=== PATIENT | female | born 1940 | race Caucasian/White ===

== ENCOUNTER 2018-01-30 05:40 | Day surgery (SDC) | payer OTHER ==
[2018-01-30] MEDS ORDERED: ACETAMINOPHEN 500 MG TAB PO ONE (05:57)
[2018-01-30] MEDS ORDERED: ceFAZolin 2 GM/SWFI 2 GM/20 ML SYR IVP ONE (05:57)
[2018-01-30] MEDS ORDERED: LR 1,000 ML IV ONE (06:04)
--- NOTE | 2018-01-30 06:14 | CPEKG ---
Heart Rate: 80 RR Interval: 750 P-R Interval: 180 QRSD Interval: 94 QT Interval: 396 QTC Interval: 457 P [place]: 29 QRS [place]: -20 T Wave [place]: 74 EKG Severity - ABNORMAL ECG - EKG Impression: SINUS RHYTHM EKG Impression: ATRIAL PREMATURE COMPLEX EKG Impression: PROBABLE INFERIOR INFARCT, AGE INDETERMINATE Electronically Signed By: Arnav Mcgovern 31-Jan-2018 12:38:39
--- NOTE | 2018-01-30 06:47 | PDANEPAE ---
ANE Past Medical History - Cardiovascular History Hx Hypertension: Yes Hx Arrhythmias: No Hx Chest Pain: No Hx Coronary Artery / Peripheral Vascular Disease: No Hx CHF / Valvular Disease: No Hx Palpitations: No Cardiovascular History Comment: HIGH CHOLESTEROL - Pulmonary History Hx COPD: No Hx Asthma/Reactive Airway Disease: No Hx Recent Upper Respiratory Infection: No Hx Oxygen in Use at Home: No Hx Sleep Apnea: Yes Sleep Apnea Screening Result - Last Documented: Positive - Neurologic History Hx Cerebrovascular Accident: No Hx Seizures: No Hx Dementia: No - Endocrine History Hx Diabetes: Yes Hypothyroid: No Hyperthyroid: No Obesity: yes, mild Endocrine History Comment: DM II - Renal History Hx Renal Disorders: No - Liver History Hx Hepatic Disorders: No - Neurological & Psychiatric Hx Hx Neurological and Psychiatric Disorders: No - Cancer History Hx Cancer: No - Congenital Disorder History Hx Congenital Disorders: No - GI History GERD: no Hx Gastrointestinal Disorders: No Gastrointestinal History Comment: CONSTIPATION - Other Health History Other Health History: . ARTHRITIS. DENTURES. SPINAL STENOSIS. GOUT - Chronic Pain History Chronic Pain: Yes (BACK) - Surgical History Prior Surgeries: kyphoplasty 2015. T11-L1 instrumentation 2015. BACK 04/2011. BREAST BIOPSY. PAROTID GLAND SURG ANE Review of Systems Review of Systems: - Exercise capacity METS (RN): 3 METS ANE Patient History - Allergies Allergies/Adverse Reactions: Penicillins Allergy (Severe, Verified 09/25/16 17:21) RASH, SWELLING - Home Medications Home Medications: Acetaminophen [Tylenol ES 500 mg (*)] 500 mg PO Q6 PRN 12/26/15 [Last Taken 06/11] Allopurinol 100 01/29/18 [Last Taken 01/29/18] Calcium 01/29/18 [Last Taken 01/29/18] Co Q-10 01/29/18 [Last Taken 01/29/18] Metformin HCl 150 DAILY 01/29/18 [Last Taken 01/29/18] Multivitamin (*) 01/29/18 [Last Taken 01/29/18] [place] 3 500 Softgel 01/29/18 [Last Taken 01/29/18] Vitamin D3 (*) 01/29/18 [Last Taken 01/29/18] Zetia 10 MG (*) 01/29/18 [Last Taken 01/29/18] oxyCODONE CR 01/29/18 [Last Taken 01/29/18] Methocarbamol 01/30/18 [Last Taken 01/29/18] - NPO status NPO Since - Liquids (Date): 01/29/18 NPO Since - Liquids (Time): 20:00 NPO Since - Solids (Date): 01/29/18 NPO Since - Solids (Time): 20:00 - Anes Hx Anes Hx: no prior problems - Smoking Hx Smoking Status: Never smoked - Alcohol Use Alcohol Use: Rarely - Family Anes Hx Family Anes Hx: neg - N/A Family Hx Anesthesia Complications: NONE ANE Labs/Vital Signs - Labs Result Diagrams: 01/30/18 06:30 - Vital Signs Blood Pressure: 145/82 Heart Rate: 80 Respiratory Rate: 14 O2 Sat (%): 91 Height: 160.02 cm Weight: 81.647 kg ANE Physical Exam - Airway Neck exam: FROM Mallampati Score: Class 2 Mouth exam: normal dental/mouth exam - Pulmonary Pulmonary: no respiratory distress, no rales or rhonchi, clear to auscultation - Cardiovascular Cardiovascular: regular rate and rhythym, no murmur, rub, or gallop - ASA Status ASA Status: II ANE Anesthesia Plan Anesthesia Plan: general endotracheal anesthesia Total IV Anesthesia: No
--- NOTE | 2018-01-30 06:51 | PDHPUP ---
History & Physical Update H&P update statement: This history and physical update is based on an assessment of the patient which was completed after admission or registration (within 24 hours), but prior to the surgery/procedure. H&P update: H&P reviewed & patient examined, no change in patient's condition since H&P completed
[2018-01-30] MEDS ORDERED: BUPIVACAINE 0.25% 30 ML SDV ONE (07:01)
[2018-01-30] MEDS ORDERED: CHLORHEXIDINE GLUC HIBICLENS 118 ML BTL TP ONE (07:01)
[2018-01-30] MEDS ORDERED: THROMBIN (BOVINE) 5,000 UNIT VIAL TP ONE (07:02)
[2018-01-30] MEDS ORDERED: BACITRACIN 50,000 UNITS/10 ML SYR IRR ONE (07:02)
[2018-01-30] MEDS ORDERED: IOPAMIDOL (ISOVUE-M 300) 15 ML VIAL ONE (07:02)
[2018-01-30] MEDS ORDERED: fentaNYL 100 MCG/2 ML INJ ONE ×5 (07:07→10:43)
[2018-01-30] MEDS ORDERED: PROPOFOL/EMULSION 500 MG/50 ML BOTTLE IV ONE (07:07)
[2018-01-30] MEDS ORDERED: ONDANSETRON 4 MG/2 ML VIAL ONE (07:08)
[2018-01-30] MEDS ORDERED: KETOROLAC 30 MG/1 ML SDV ONE (07:08)
[2018-01-30] MEDS ORDERED: ROCURONIUM 50 MG/5 ML VIAL ONE (07:08)
[2018-01-30] MEDS ORDERED: LIDOCAINE 2% 5 ML SDV ONE (07:08)
[2018-01-30] MEDS ORDERED: PROPOFOL 200 MG/20 ML VIAL ONE (07:19)
[2018-01-30] MEDS ORDERED: ceFAZolin 2 GM/SWFI 20 ML SYR IVP ONE (07:54)
[2018-01-30] MEDS ORDERED: DIAZEPAM 5 MG/ML 1 ML SYR IVP PRN (08:54)
[2018-01-30] MEDS ORDERED: ENALAPRILAT DIHYDRATE 1.25 MG/ML VIAL IVP PRN (08:54)
[2018-01-30] MEDS ORDERED: NALOXONE HCL 0.4 MG/ML INJ IVP PRN (08:54)
[2018-01-30] MEDS ORDERED: OXYCODONE/APAP 5/325 TAB PO PRN (08:54)
[2018-01-30] MEDS ORDERED: ACETAMINOPHEN 500 MG TAB PO PRN (08:54)
[2018-01-30] MEDS ORDERED: ONDANSETRON 4 MG/2 ML VIAL IVP PRN ×2 (08:54→09:14)
[2018-01-30] MEDS ORDERED: PROMETHAZINE HCL 25 MG/ML INJ IVP PRN (08:54)
[2018-01-30] MEDS ORDERED: LR 500 ML IV PRN (08:54)
[2018-01-30] MEDS ORDERED: ONDANSETRON DISINTEGRATING 4 MG TAB PO PRN (09:14)
--- NOTE | 2018-01-30 09:17 | SOAPPROG ---
SABRINA Progress Note Assessment/Plan: Assessment: 77 yo F sp T5 kyphoplasty Plan: stable dc at noon please call with neuro changes please have Dr Christopher see patient prior to discharge 01/30/18 09:16 Subjective: + incisional pain, no rib pain Objective: Vital Signs Temp Pulse Resp BP Pulse Ox 37.1 C 80 14 145/82 H 91 L 01/30/18 06:11 01/30/18 08:53 01/30/18 08:53 01/30/18 08:53 01/30/18 08:53 Laboratory Results 01/30/18 06:30 awake, alert PERRL, no facial droop JUVENTINO x 4 + light touch ICD10 Worksheet Patient Problems: Problems Problem Status Onset Fusion of lumbar spine Acute
--- NOTE | 2018-01-30 09:27 | GOP ---
[f rep st] OPERATIVE REPORT DATE OF OPERATION: 01/30/2018 SURGEON: Fredrick Connor MD SHEET METAL WORKER: Sreekanth Castro. ANESTHESIA: General endotracheal and local. PREOPERATIVE DIAGNOSIS: T5 osteoporotic vertebral compression. POSTOPERATIVE DIAGNOSIS: T5 osteoporotic vertebral compression. PROCEDURE PERFORMED: Minimally invasive percutaneous kyphoplasty procedure T5 with use of computer v olumetric stereotactic navigation. FINDINGS: ESTIMATED BLOOD LOSS: Trace. INDICATIONS: The patient is a 77-year-old woman with a complex past medical and surgical history inv olving her spine. She has had extensive prior instrumented fusions and adjacent level osteoporotic v ertebral compression fractures treated with kyphoplasty procedure and presents now for another one at the T5 level adjacent to a prior T6 level kyphoplasty due to intractable pain. This failed to impro ve with extensive conservative care. DESCRIPTION OF PROCEDURE: After informed consent was obtained, the patient was taken to the operatin g room and placed in the prone position on the Ruben table. The thoracic area was prepped and drap ed in a sterile fashion. After fluoroscopic localization of the correct level, the subcutaneous and intramuscular tissues were infiltrated with local anesthesia. A midline linear incision was created about 2 levels above the area of interest and the incision was carried down to the fascial layer, whi ch was incised using a monopolar electrocautery and a frame attached to the spinous processes. The O -arm neuronavigational system was brought in and 3-D reconstructed images obtained. Using computer v olumetric stereotactic navigation, the T5 level was cannulated and the kyphoplasty devices placed tra nspedicularly. The balloons were blown up to approximately 200 under biplanar fluoroscopic image hesham dance. These were removed and the T5 level filled with bone cement under real-time fluoroscopic imag e guidance. The cannulas were removed and neuromonitoring signals were stable throughout the case. The wounds were copiously irrigated with antibiotic irrigation. Meticulous hemostasis was achieved a nd closed in a layered fashion using interrupted Vicryl sutures followed by Steri-Strips on the skin. COMPLICATIONS: None. DISPOSITION: The patient is currently in the process of being repositioned for extubation. /[id number]/MODL
[2018-01-30 09:43] VITALS: RESP 16
[2018-01-30 09:47] VITALS: TEMP 97.9
[2018-01-30] MEDS: fentaNYL 100 MCG/2 ML INJ IVP PRN ×3 (10:07→10:45)
[2018-01-30] MEDS ORDERED: HYDROCODONE/APAP 5/325 TAB ONE ×2 (10:43→11:15)
[2018-01-30] MEDS: HYDROCODONE/APAP 5/325 TAB PO PRN ×2 (10:47→11:17)
--- NOTE | 2018-01-30 11:00 | POSTANESTH ---
Post Anesthetic Evaluation Cardiovascular Status: Normal, Stable, Similar to Pre-Op Cond Respiratory Status: Normal, Stable Level of Consciousness/Mental Status: Can Participate in Eval Pain Control: Adequate, Prn Tx Ordered Nausea/Vomiting Control: Adequate, Prn Tx Ordered Complications Possibly Related to Anesthesia: None Noted
[2018-01-30 11:02] VITALS: BP 134/65; O2SAT 95
[2018-01-30 12:18] VITALS: PULSE 86
== END 2018-01-30 12:56 | disposition home or self-care (01) ==
LOC: FSGY 05:40
PROVIDERS: ATTEND Neurological Surgery
PROC: 0PU43JZ Supplement Thoracic Vertebra with Synthetic Substitute, Percutaneous Approach (ICD-10-PCS; principal; 2018-01-30 07:15)
PROC: 0PS43ZZ Reposition Thoracic Vertebra, Percutaneous Approach (ICD-10-PCS; principal; 2018-01-30 07:15)
PROC: BR171ZZ Fluoroscopy of Thoracic Spine using Low Osmolar Contrast (ICD-10-PCS; 2018-01-30 07:15)
DX: M80.88XA Other osteoporosis with current pathological fracture, vertebra(e), initial encounter for fracture (principal); E11.9 Type 2 diabetes mellitus without complications; Z98.1 Arthrodesis status
CPT/HCPCS: 22513; 76001; 93005; C1894; C1713; J0171; J0690; J1885; J2405; J2704; J3010; Q9967

== ENCOUNTER 2018-03-10 11:07 | Observation (INO) | payer OTHER ==
--- NOTE | 2018-03-09 16:51 | GHP ---
[f rep st] PREOP HISTORY AND PHYSICAL DATE OF ADMISSION: 03/10/2018 HISTORY: Rosi is a 77-year-old female who presents with left knee arthritis. She has pain and sw elling, some limitation of motion, alteration of her gait and restriction of activities of daily eric ng. She has done appropriate conservative measures. Her x-rays show significant tricompartmental le ft knee osteoarthritis, especially medial compartment which is near [id number]. PAST MEDICAL HISTORY: She is prediabetic. She has history of gout and hypothyroidism. MEDICATIONS: Include Zetia 10 mg p.o. daily, metformin 850 mg p.o. daily, allopurinol 100 mg p.o. da kaci. PAST SURGICAL HISTORY: Includes a spinal fusion x2, a kyphoplasty, appendectomy, salivary gland surg mik. She has had a breast biopsy, benign. SOCIAL HISTORY: She is a nonsmoker. ALLERGIES: Penicillin. REVIEW OF SYSTEMS: Remarkable from the endocrine standpoint for diabetes and from the musculoskeleta l standpoint for gout. Also, from the endocrine standpoint for hypothyroid. PHYSICAL EXAM: GENERAL: The patient is a well-developed, well-nourished female in no apparent distr ess. HEAD AND NECK: Normocephalic, atraumatic. CHEST: Clear. CARDIOVASCULAR: Regular rate and r hythm. ABDOMEN: Soft. NEUROLOGIC: She is alert and oriented x3. EXTREMITIES: Examination of the left knee shows prominence along the medial joint line. She has a flexion contracture and 120 degre es of flexion. She tends towards varus alignment. Sensation and perfusion are intact. She has medi an joint line tenderness. X-RAYS: Tricompartment left knee osteoarthritis with subchondral sclerosis, decreased joint space, e ssentially [id number]-[id number] contact in the medial compartment. IMPRESSION: Left knee osteoarthritis. PLAN: Left total knee arthroplasty. Benefits, risks of surgery been reviewed. She has signed a con sent form, wishes to proceed. She understands that the risks include infection, damage to blood vess el or nerve, failure or loosening of components, blood clot in the leg or lungs, bleeding, and need f or transfusion. I have reviewed the rigorous nature of the rehabilitation. /[id number]/MODL
--- NOTE | 2018-03-10 07:19 | PDHPUP ---
History & Physical Update H&P update statement: This history and physical update is based on an assessment of the patient which was completed after admission or registration (within 24 hours), but prior to the surgery/procedure. H&P update: H&P reviewed & patient examined (no change)
[~2018-03-10 11:07] MED LIST: BUPI/epINEPH/KETOROLAC IU ONE; POVIDONE-IODINE 20 ML in SODIUM CL IRRIG SOLUTION 500 ML IRR ONE; ROPIVACAINE 0.2% 80 MG, EPINEPHrine 0.2 MG, KETOROLAC TROMETHAMINE 30 MG in SYRINGE 0 ML IU ONE; TRANEXAMIC ACID 1,000 MG in NS (SYRINGE) 50 ML IV ONE; VANCOMYCIN 1.25 GM in NS 250 ML IV ONE; ceFAZolin 1 GM/5 ML SYR ONE
[2018-03-10] MEDS ORDERED: ACETAMINOPHEN 325 MG TAB PO ONE (11:20)
[2018-03-10] MEDS ORDERED: GABAPENTIN 300 MG CAP PO ONE (11:20)
[2018-03-10] MEDS ORDERED: FAMOTIDINE 20 MG TAB PO ONE (11:20)
[2018-03-10] MEDS ORDERED: DEXAMETHASONE 4 MG/ML VIAL IVP ONE (11:20)
[2018-03-10] MEDS ORDERED: VANCOMYCIN PHARMACY TO DOSE MISC ONE (11:20)
[2018-03-10] MEDS ORDERED: LIDOCAINE 1% 2 ML INJ ID PRN (11:21)
[2018-03-10] MEDS ORDERED: LR 1,000 ML IV ONE (11:21)
--- NOTE | 2018-03-10 11:45 | PDANEPAE ---
ANE History of Present Illness L TKA ANE Past Medical History - Cardiovascular History Hx Hypertension: Yes Hx Arrhythmias: No Hx Chest Pain: No Hx Coronary Artery / Peripheral Vascular Disease: No Hx CHF / Valvular Disease: No Hx Palpitations: No Cardiovascular History Comment: HIGH CHOLESTEROL - Pulmonary History Hx COPD: No Hx Asthma/Reactive Airway Disease: No Hx Recent Upper Respiratory Infection: No Hx Oxygen in Use at Home: No Hx Sleep Apnea: No Sleep Apnea Screening Result - Last Documented: Negative - Neurologic History Hx Cerebrovascular Accident: No Hx Seizures: No Hx Dementia: No - Endocrine History Hx Diabetes: Yes Endocrine History Comment: PREDIABETIC - Renal History Hx Renal Disorders: No - Liver History Hx Hepatic Disorders: No - Neurological & Psychiatric Hx Hx Neurological and Psychiatric Disorders: No - Cancer History Hx Cancer: No - Congenital Disorder History Hx Congenital Disorders: No - GI History Hx Gastrointestinal Disorders: No Gastrointestinal History Comment: CONSTIPATION - Other Health History Other Health History: ARTHRITIS. DENTURES. SPINAL STENOSIS. GOUT - Chronic Pain History Chronic Pain: Yes (BACK) - Surgical History Prior Surgeries: kyphoplasty X2. T11-L1 instrumentation 2016. BACK 04/2011. BREAST BIOPSY. PAROTID GLAND SURG. APPENDECTOMY ANE Review of Systems Review of systems is: negative Review of Systems: - Exercise capacity METS (RN): 3 METS ANE Patient History - Allergies Allergies/Adverse Reactions: Penicillins Allergy (Severe, Verified 09/25/16 17:21) RASH, SWELLING - Home Medications Home medications: home medication list seen and reviewed Home Medications: Acetaminophen [Tylenol ES 500 mg (*)] 500 - 1,000 mg PO QID PRN 02/18/18 [Last Taken 1 Day Ago ~03/09/18] Allopurinol [Allopurinol 100 MG (*)] 100 mg PO DAILY 02/18/18 [Last Taken ] Calcium Carb W/Vit D [Calcium Carb W/Vit D 500/200 (*)] 1,000 mg PO DAILY [Last Taken 1 Week Ago ~03/03/18] Cholecalciferol Vit D3 [Vitamin D3 (*)] 1,000 units PO DAILY 02/18/18 [Last Taken 1 Week Ago ~03/03/18] Ezetimibe [Zetia 10 MG (*)] 10 mg PO HS 02/18/18 [Last Taken 1 Day Ago ~03/09/18 ] Herbals/Supplements -Info Only 1 ea PO DAILY 02/18/18 [Last Taken 1 Week Ago ~] Methocarbamol [Robaxin 750 mg (*)] 750 mg PO DAILY PRN 02/18/18 [Last Taken 2 Weeks Ago ~02/24/18] Multivitamins [Multivitamin (*)] 1 each PO DAILY 02/18/18 [Last Taken 1 Week Ago ~03/03/18] metFORMIN HCL [Glucophage 850 mg (*)] 850 mg PO DAILY 02/18/18 [Last Taken 03/07] oxyCODONE IR [Oxycodone Ir (*)] 5 mg PO DAILY PRN 02/18/18 [Last Taken 3 Weeks Ago ~02/17/18] Aspirin 02/24/18 [Last Taken 03/08/18] Prolia 02/24/18 [Last Taken 12/05/17] - NPO status NPO Since - Liquids (Date): 03/10/18 NPO Since - Liquids (Time): 23:30 NPO Since - Solids (Date): 03/10/18 NPO Since - Solids (Time): 23:30 - Anes Hx Anes Hx: no prior problems - Smoking Hx Smoking Status: Never smoked - Family Anes Hx Family Anes Hx: none Family Hx Anesthesia Complications: NONE ANE Labs/Vital Signs - Vital Signs Blood Pressure: 152/70 Heart Rate: 87 Respiratory Rate: 18 O2 Sat (%): 94 Height: 160.02 cm Weight: 79.379 kg ANE Physical Exam - Airway Neck exam: FROM Mallampati Score: Class 2 Mouth exam: dentures - Pulmonary Pulmonary: no respiratory distress - Cardiovascular Cardiovascular: regular rate and rhythym - ASA Status ASA Status: II ANE Anesthesia Plan Anesthesia Plan: MAC, spinal
[2018-03-10] MEDS ORDERED: MIDAZOLAM 2 MG/2 ML VIAL ONE (12:41)
[2018-03-10] MEDS ORDERED: PROPOFOL/EMULSION 500 MG/50 ML BOTTLE IV ONE (13:05)
[2018-03-10] MEDS ORDERED: LIDOCAINE 2% 100 MG/5 ML SYR ONE (13:05)
[2018-03-10] MEDS ORDERED: epHEDrine SULFATE 10 MG/ML SYR ONE (13:49)
[2018-03-10] MEDS ORDERED: ONDANSETRON 4 MG/2 ML VIAL IVP PRN ×2 (13:54→14:46)
[2018-03-10] MEDS ORDERED: oxyCODONE IR 5 MG TAB PO PRN ×2 (13:54→14:46)
[2018-03-10] MEDS ORDERED: HYDROmorphONE/DILAUDID 1 MG/ML INJ IVP PRN (13:54)
[2018-03-10] MEDS ORDERED: HYDROCODONE/APAP 5/325 TAB PO PRN (13:54)
[2018-03-10] MEDS ORDERED: fentaNYL 100 MCG/2 ML INJ IVP PRN (13:54)
[2018-03-10] MEDS ORDERED: NALOXONE HCL 0.4 MG/ML INJ IVP PRN (13:54)
[2018-03-10] MEDS ORDERED: MEPERIDINE 25 MG/ML SYR IVP PRN (13:54)
[2018-03-10] MEDS ORDERED: DEXAMETHASONE 4 MG/ML VIAL IVP PRN (13:54)
[2018-03-10] MEDS ORDERED: ACETAMINOPHEN 500 MG TAB PO PRN (13:54)
--- NOTE | 2018-03-10 13:54 | POSTANESTH ---
Post Anesthetic Evaluation Cardiovascular Status: Normal, Stable, Similar to Pre-Op Cond Respiratory Status: Normal, Stable, Similar to Pre-op Cond. Level of Consciousness/Mental Status: Can Participate in Eval, Mildly Sleepy, Arousable Pain Control: Adequate, Prn Tx Ordered Nausea/Vomiting Control: Adequate, Prn Tx Ordered Complications Possibly Related to Anesthesia: None Noted
[2018-03-10] MEDS ORDERED: HYDROmorphONE/DILAUDID 2 MG/ML INJ IVP PRN (14:02)
[2018-03-10] MEDS ORDERED: MAGNESIUM HYDROXIDE 30 ML UDCUP PO PRN (14:46)
[2018-03-10] MEDS ORDERED: DIPHENOXYLATE/ATROPINE LOMOTIL 1 TAB PO PRN (14:46)
[2018-03-10] MEDS ORDERED: CYCLOBENZAPRINE 10 MG TAB PO PRN (14:46)
[2018-03-10] MEDS ORDERED: PROMETHAZINE HCL 25 MG SUPPR PR PRN (14:46)
[2018-03-10] MEDS ORDERED: LACTULOSE 20 GM/30 ML UDCUP PO PRN (14:46)
[2018-03-10] MEDS ORDERED: POLYETHYLENE GLYCOL 3350 17 GM PKT PO PRN (14:46)
[2018-03-10] MEDS ORDERED: PROMETHAZINE HCL 25 MG/ML INJ IVP PRN (14:46)
[2018-03-10] MEDS ORDERED: METOCLOPRAMIDE 10 MG/2 ML VIAL IVP PRN (14:46)
[2018-03-10] MEDS ORDERED: ONDANSETRON DISINTEGRATING 4 MG TAB PO PRN (14:46)
[2018-03-10] MEDS ORDERED: BISACODYL 10 MG SUPP PR PRN (14:46)
[2018-03-10] MEDS ORDERED: diphenhydrAMINE 25 MG CAP PO PRN (14:46)
[2018-03-10] MEDS ORDERED: METHOCARBAMOL 750 MG TAB PO PRN (14:51)
[2018-03-10] MEDS ORDERED: LR 1,000 ML IV SCH (15:00)
--- NOTE | 2018-03-10 16:14 | GOP ---
[f rep st] OPERATIVE REPORT DATE OF OPERATION: SURGEON: Scott Quevedo MD MACHINE FEED OPERATOR: Tip Matthew, CSFA, LSA. My surgical asst, Tip Matthew, was a medical necessit y for this surgical procedure with joint replacement. ANESTHESIOLOGIST: Darnell Vasques MD PREOPERATIVE DIAGNOSIS: Left knee osteoarthritis. POSTOPERATIVE DIAGNOSIS: Left knee osteoarthritis. PROCEDURE PERFORMED: Left total knee arthroplasty. FINDINGS: SPECIMENS: Include excised bone. ESTIMATED BLOOD LOSS: Minimal. DESCRIPTION OF PROCEDURE: The patient was taken to the operating room, and while seated on the OR ta ble, had a spinal block by Dr. Vasques. She then received vancomycin preoperatively. She also rece ived her first dose of tranexamic acid. She was placed supine with a roll beneath the left hip to ne utralize rotation and the left lower extremity was prepped and draped with chlorhexidine free in the usual fashion. The limb was elevated, exsanguinated, and the tourniquet inflated to 275 mmHg. I made a longitudinal incision in the midline, used a medial parapatellar arthrotomy. The patella wa s inverted and I removed 9 mm of cartilage and bone, and sized the patella to a 32. I drilled peg ho les for the component, the trial component and the [place] patella reconstituted the appropriate thick ness. I removed osteophytes. Patella was inverted. The knee was flexed. I drilled a automatic pilot mechanic hole fo r an intramedullary device for the alignment of the distal femoral cut, it was a standard cut with no additional resection, 5 degrees of valgus. I sized the femur at a size 4, I did advance it a couple of millimeters so that I avoided notching and I completed the anterior, posterior and chamfer cuts. Using a spacer block, I extended the knee and made an estimate of where my tibial cut needed to be. The knee was then flexed. I placed posterior and lateral retractors. I used an extramedullary vania ce, cutting a bit proximal to the lisa I previously made and just skimming underneath the area of pre dominant wear medially. I made sure this was a perpendicular cut and had the appropriate posterior s karin. I sized the tibial surface at a size 3, and I completed the tibial prep as I dialed in the rot ation with cruciate punch. The components were then removed, all the surfaces jet lavaged, irrigated with antibiotics. All comp onents were cemented; the femur size 4, tibia size 3, patella 32. I then went through trial reductio ns and I found that an 11 mm articular insert provided full extension, appropriate rollback in flexio n and appropriate ligament stability. So, the permanent base articular tray with cross-linked polyet hylene 11 mm thick, was snapped into place. The tourniquet was let down, a little under an hour tour niquet time. She received a second tranexamic acid dose. The deep joint was irrigated with antibiot ics as well as Betadine wash. I closed the arthrotomy with interrupted [id number] sutures of 0 [place]il[place]. Subcutaneous tissue was closed with 2-0 Monocryl, and the skin with bo. The wound w as dressed with Betadine-soaked Adaptic, 4 x 4, sterile Webril, and a long-leg KATHI stocking. There w ere no complications. OPERATIVE INDICATIONS: The patient is a 77-year-old female who presents with history, exam and x-ray s consistent with severe left knee tricompartment osteoarthritis, [id number] in the medial compartm ent. A left total knee arthroplasty is planned. DRAINS: No drain. COUNTS: All counts were correct. DISPOSITION: The patient was taken in stable condition to recovery. SUMMARY OF COMPONENTS: This is a [employer] knee, bi-cruciate stabilized, all componen ts cemented. The femur is Oxinium. The articular insert is cross-linked polyethylene. The femur is size 4, tibia size 3, the patella 32, the articular insert 11 mm. /[id number]/MODL
[2018-03-10] MEDS: ACETAMINOPHEN 325 MG TAB PO SCH (17:54)
[2018-03-10] MEDS: ASPIRIN 325 MG TAB PO SCH (20:37)
[2018-03-10] MEDS: FAMOTIDINE 20 MG TAB PO SCH (20:38)
[2018-03-10] MEDS: SENNOSIDES/DOCUSATE SODIUM TAB PO SCH (20:39)
[2018-03-10] MEDS ORDERED: EZETIMIBE 10 MG TAB PO SCH (21:00)
[2018-03-10] MEDS: ceFAZolin 2 GM/SWFI 2 GM/20 ML SYR IVP SCH (22:06)
[2018-03-11] MEDS: TEMAZEPAM 15 MG CAP PO PRN ×2 (00:08→01:02)
[2018-03-11] MEDS: ACETAMINOPHEN 325 MG TAB PO SCH ×3 (00:08→11:12)
[2018-03-11] MEDS: ceFAZolin 2 GM/SWFI 2 GM/20 ML SYR IVP SCH (06:03)
[2018-03-11 07:39] VITALS: BP 141/74
[2018-03-11] MEDS: ASPIRIN 325 MG TAB PO SCH (07:52)
[2018-03-11] MEDS: SENNOSIDES/DOCUSATE SODIUM TAB PO SCH (07:52)
--- NOTE | 2018-03-11 07:52 | SOAPPROG ---
SOAP Progress Note Assessment/Plan: Assessment: 03/11/18, POD#1, R TKA, pain controlled Plan: 03/11/18 07:51 PT, ok for d/c, oxy, celebrex, asa Objective: Vital Signs Temp Pulse Resp BP Pulse Ox 36.5 C 81 16 141/74 H 95 03/11/18 07:36 03/11/18 07:36 03/11/18 07:36 03/11/18 07:36 03/11/18 07:36 Laboratory Results 03/11/18 04:31 03/10/18 03/11/18 03/12/18 05:59 05:59 05:59 Intake Total 2700 Output Total 1900 Balance 800 ICD10 Worksheet Patient Problems: Problems Problem Status Onset Fusion of lumbar spine Acute
[2018-03-11] MEDS: FAMOTIDINE 20 MG TAB PO SCH (07:53)
--- NOTE | 2018-03-11 07:56 | PDIAF ---
- Diagnosis Diagnosis: right knee osteoarthritis Code Status: Full Code - Medication Management Discharge Medications: Medications to Continue on Transfer Acetaminophen [Tylenol ES 500 mg (*)] 500 - 1,000 mg PO Q6H PRN 02/18/18 [Last Taken 1 Day Ago ~03/09/18] Allopurinol [Allopurinol 100 MG (*)] 100 mg PO DAILY 02/18/18 [Last Taken ] Calcium Carb W/Vit D [Calcium Carb W/Vit D 500/200 (*)] 500 mg PO BID 02/18/18 [ Last Taken 1 Week Ago ~03/03/18] Cholecalciferol Vit D3 [Vitamin D3 (*)] 1,000 units PO HS 02/18/18 [Last Taken 1 Week Ago ~03/03/18] Ezetimibe [Zetia 10 MG (*)] 10 mg PO HS 02/18/18 [Last Taken 1 Day Ago ~03/09/18 ] Herbals/Supplements -Info Only 1 ea PO DAILY 02/18/18 [Last Taken 1 Week Ago ~] Methocarbamol [Robaxin 750 mg (*)] 750 mg PO DAILY PRN 02/18/18 [Last Taken 2 Weeks Ago ~02/24/18] Multivitamins [Multivitamin (*)] 1 each PO DAILY 02/18/18 [Last Taken 1 Week Ago ~03/03/18] metFORMIN HCL [Glucophage 850 mg (*)] 850 mg PO DAILY 02/18/18 [Last Taken 03/07] oxyCODONE IR [Oxycodone Ir (*)] 5 mg PO Q6H PRN 02/18/18 [Last Taken 3 Weeks Ago ~02/17/18] Denosumab [Prolia] 60 mg SQ Q6M 02/24/18 [Last Taken 12/05/17] Aspirin [Aspirin 325 mg (*)] 325 mg PO DAILY@14 03/10/18 [Last Taken 03/08/18] Aspirin [Aspirin 325 mg (*)] 325 mg PO DAILY tab 03/11/18 [Last Taken Unknown] celeCOXIB [Celebrex (*)] 200 mg PO DAILY #30 cap 03/11/18 [Last Taken Unknown] oxyCODONE IR [Oxycodone Ir (*)] 5 - 10 mg PO Q3HRS PRN #30 tab 03/11/18 [Last Taken Unknown] Discharge Medications: Refer to the Discharge Home Medication list for PRN reason. - Orders Services needed: Physical Therapy Diet Recommendation: no restrictions on diet Diet Texture: Regular Texture Diet Sam Stockings Discontinue Date: 2 weeks Wound Care Instructions: keep covered, clean and dry - Follow Up Care Current Providers and Referrals: CAROLYN BENITEZ [Primary Care Provider] -
[2018-03-11] MEDS ORDERED: ALLOPURINOL 100 MG TAB PO SCH (09:00)
[2018-03-11] MEDS ORDERED: Herbals/Supplements -Info Only PO SCH (09:00)
[2018-03-11] MEDS ORDERED: CALCIUM CARB W/VIT D 500 MG TAB PO SCH (09:00)
[2018-03-11] MEDS ORDERED: MULTIVITAMINS 1 EACH TAB PO SCH (09:00)
[2018-03-11] MEDS ORDERED: CHOLECALCIFEROL VIT D3 1,000 UNITS TAB PO SCH (09:00)
[2018-03-11] MEDS ORDERED: metFORMIN HCL 850 MG TAB PO SCH (09:00)
--- NOTE | 2018-03-11 12:36 | ASDISCHSUM ---
Discharge Information Plan Status:Home with Home Health Medically Cleared to Leave: Discharge Date:03/11/2018 12:22 PM CM D/C Disposition:Home Health Service ADT D/C Disposition:[id number] Projected Discharge Date:03/11/2018 11:00 AM Transportation at D/C:Family Discharge Delay Reason: Follow-Up Date:03/11/2018 11:00 AM Discharge Slot: Final Diagnosis: Placement Information Referral Type:*Home Health Care Services Referral ID:[id number] Provider Name:[facility] Address 1:[address] [place] [address] Address 2: City:[place] Selection Factors: State:[place] Patient Contact Information Contact Name:ANUJ Relationship: Address:[address] City:[place] Alternate Phone: State/Zip Code:[place] [address] Email: Financial Information Financial Class:Medicare Advantage Plans Primary Plan Desc:[employer] CHO[employer] PPO MEDICARE Primary Plan Number:[id number] Secondary Plan Desc: Secondary Plan Number: Assessment Information [facility] CM Progress Note CM Note CM Note Notes: Pt medically stable for d/c with [facility] PT , orders to be obtained via [employer]. Date Signed: 03/11/2018 12:35 PM Electronically Signed By:HASMUKH Trujillo Intervention Information
--- NOTE | 2018-03-11 12:36 | ASMTCMCOM ---
CM Note CM Note Notes: Pt medically stable for d/c with [facility] PT , orders to be obtained via [facility]. Date Signed: 03/11/2018 12:35 PM Electronically Signed By:HASMUKH Trujillo
== END 2018-03-11 12:22 | disposition home health service (06) ==
LOC: F3N 11:07
PROVIDERS: ADMIT Orthopaedic Surgery; ATTEND Orthopaedic Surgery
PROC: 0SRD0JZ Replacement of Left Knee Joint with Synthetic Substitute, Open Approach (ICD-10-PCS; principal; 2018-03-10 13:30)
DX: M17.12 Unilateral primary osteoarthritis, left knee (principal)
CPT/HCPCS: 27447; 73560; 97161; 97165; C1713; C1776; G0378; G8987; G8988; G8989; J0171; J0690; J1100; J1885; J2001; J2250; J2704; J3370; J2795